=== PATIENT | male | born 1995 | race Caucasian/White ===

== ENCOUNTER 2018-03-09 18:39 | Emergency (ER) | payer OTHER ==
[~2018-03-09] VITALS: Ht 180.3 cm; Wt 88.0 kg
[~2018-03-09 18:39] MED LIST: Z.0.NO CURRENT MEDS
[2018-03-09 18:46] VITALS: BP 155/96; PULSE 74; RESP 15; TEMP 98.5; O2SAT 97
[2018-03-09] MEDS ORDERED: TETANUS/DIPHTHERIA TOXOID ADULT 0.5 ML VIAL IM ONE (19:15)
--- NOTE | 2018-03-09 19:15 | PD ---
HPI Chief Complaint: Exposure to Blood/Body Fluids Time Seen by Provider: 18:58 Travel History International Travel<30 days: No Contact w/Intl Traveler<30days: No Traveled to known affect area: No History of Present Illness HPI 22 year old male presents to the emergency department for evaluation of an abrasion to his right volar hand. 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 However, the patient was bleeding from her mouth where she had an abrasion. The patient does not think that any of the blood from the suspect got on his hand, but he is not completely sure. He states his tetanus immunization is not up to date. He has no chronic medical problems and takes no prescribed medications. Moderate severity. PFSH Past Medical History Medical History: Denies Significant Hx Diminished Hearing: No Immunizations Current: Yes Tetanus Vaccination: Unknown Influenza Vaccination: Yes ?: Not Past Surgical History Surgical History: No Previous Surgery Social History Alcohol Use: Yes (ocassional) Tobacco Use: Yes (once a week) Substance Use: No Allergies-Medications (Allergen,Severity, Reaction): Coded Allergies: amoxicillin (Unverified Allergy, Mild, RASH, 03/09/18) clavulanic acid (Unverified Allergy, Mild, RASH, 03/09/18) Reported Meds & Prescriptions Reported Meds & Active Scripts Active Reported No Current Meds (Miscellaneous Medication) Misc Review of Systems Except as stated in HPI: all other systems reviewed are Neg Physical Exam Narrative GENERAL: Well-nourished, well-developed male patient, afebrile. SKIN: Focused skin assessment warm/dry. Patient has a superficial abrasion to the right volar hand, no active bleeding. HEAD: Normocephalic. Atraumatic. EYES: No scleral icterus. No injection or drainage. NECK: Supple, trachea midline. No JVD or lymphadenopathy. CARDIOVASCULAR: Regular rate and rhythm without murmurs, gallops, or rubs. RESPIRATORY: Breath sounds equal bilaterally. No accessory muscle use. Lung sounds are clear to auscultation. MUSCULOSKELETAL: No cyanosis, or edema. Data Data Last Documented VS Vital Signs Date Time Temp Pulse Resp B/P (MAP) Pulse Ox O2 Delivery O2 Flow Rate FiO2 03/09/18 19:11 0103/09/18 18:46 98.5 74 155/96 (115) 97 Orders Orders Tetanus/Diphtheria Tox Adult (Tetanus/Di (03/09/18 19:15) Wound Care (03/09/18 19:08) MDM Medical Decision Making Medical Screen Exam Complete: Yes Emergency Medical Condition: Yes Medical Record Reviewed: Yes Differential Diagnosis abrasion vs. laceration vs. body fluid exposure Narrative Course 22 year old male presents to the emergency department for evaluation of an abrasion to his right volar hand, body fluid exposure. Patient states the source patient is + for Hep C. Risk is low for HIV exposure. PEP treatment not recommended. He states the source patient is coming in as well. Labs will be drawn per protocol. Tetanus immunization is updated. Wound care is completed. Diagnosis Primary Impression: Hand abrasion Qualified Codes: S60.511A - Abrasion of right hand, initial encounter Additional Impression: Exposure to blood or body fluid Patient Instructions: Abrasion (ED), Body Substance Exposure (ED), General Instructions Additional Instructions: Follow up with workers comp. Clean abrasion twice daily with soap and water and apply over the counter antibiotic ointment. Keep clean and dry. Return to the emergency department for any acute, worsening of symptoms. Med/Other Pt SpecificInfo: No Change to Meds Disposition: 01 DISCHARGE HOME Condition: Stable Fozia Cardenas March 09, 2018 19:15
[2018-03-09 20:14] VITALS: BP 141/78; PULSE 78; RESP 18; O2SAT 99
== END 2018-03-09 20:16 | disposition home or self-care (01) ==
LOC: PHED 18:39
DX: S60.511A Abrasion of right hand, initial encounter (principal); Z77.21 Contact with and (suspected) exposure to potentially hazardous body fluids; Z23 Encounter for immunization; Y35.891A Legal intervention involving other specified means, law enforcement official injured, initial encounter; Y99.0 Civilian activity done for income or pay
CPT/HCPCS: 86317; 86803; 87389; 90471; 90714; G0475